=== PATIENT | female | born 1965 ===

== ENCOUNTER 2025-01-09 14:50 | Outpatient (AMB) | payer OTHER, SELFPAY ==
--- NOTE | 2025-01-09 15:13 | A.OFFVIS_ITS ---
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 The patient reports first noticing a feeling of being off kilter and off balance over a year ago, particularly with [id number] movements while cooking or when turning in the shower. The patient finds it necessary to hold on for support in the shower but has never fallen. The patient clarifies the sensation as unsteadiness rather than dizziness. The patient was evaluated by a primary care provider in September, who noted poor balance and provided a referral to neurology. The patient reports consuming approximately 5-6 alcoholic drinks per week. The patient has a history of a rash on the arms and hands for the past two years and also reports occasional itching on the bottom of the feet. The patient denies having diabetes, but there is a family history of diabetes. There is a significant family history of peripheral neuropathy, affecting the patient's father and brother. The patient's father was diabetic and had severe neuropathy. [facility] Medical History (Updated 01/09/25 @ 15:23 by Alexx Clancy MD) Peripheral neuropathy Review of Systems Narrative Constitutional:?No fever, chills, fatigue, weight loss, or night sweats. HEENT:?No headache, vision changes, hearing loss, nasal congestion, sore throat. Cardiovascular:? Complain of chest pain Respiratory:? Complain of shortness of breath Gastrointestinal:? Complain of abdominal pain diarrhea nausea Genitourinary:?No dysuria, frequency, incontinence, or hematuria. Musculoskeletal:? Complain of joint. Neurological:? Complain of unsteadiness Psychiatric:?No anxiety, depression, mood swings, sleep disturbance, or hallucinations. Endocrine:? Complain of heat intolerance Hematologic/Lymphatic:?No easy bruising, bleeding, or lymphadenopathy. Integumentary (Skin):? Complain of rash redness and itching Allergic/Immunologic:?No seasonal allergies, hives, or recurrent infections. Physical Exam Neuro Other: Mental Status: Alert and oriented to person, place, and time. Normal attention. Normal spontaneous speech, fluency, and comprehension. No obvious issues with mood and memory. Affect is appropriate. Cranial Nerves: CN II: Visual castellano full to confrontation, visual acuity intact. CN III, IV, : Pupils equal, round, reactive to light and accommodation. Extraocular movements are normal. CN V: Facial sensation is normal. CN VII: Facial movements symmetrical. CN VIII: Hearing intact to bedside conversation is normal. CN IX, X: Palate elevates symmetrically. CN XI: Shoulder shrug and head turn symmetrical. CN XII: Tongue midline without atrophy or fasciculations. Motor: Bulk and tone normal in all extremities. No significant muscle weakness in arms and legs. No drift. Reflexes: Deep tendon reflexes are trace to absent in knees, only elicitable with reinforcement, and absent in ankles with flexor plantars Coordination: Ktjepu-rx-qorf and pbtb-th-gxlr testing normal. No dysmetria. Gait and Station: No obvious gait abnormality. No ataxia or instability. Sensory: Decreased vibratory and absent joint position sensation in toes. Romberg is negative. Extrapyramidal: Full facial expressions and blinking. No rigidity. Movements are appropriate with no tremor or abnormality. Speech: Normal; no dysarthria or tremor. Assessment & Plan Assessment & Plan (1) Peripheral neuropathy: Code(s): G62.9 - Polyneuropathy, unspecified Category: Medical Qualifiers: Peripheral neuropathy type: polyneuropathy, unspecified Qualified Code(s): G62.9 - Polyneuropathy, unspecified Plan Impression recommendations: 59 years old woman with family history of diabetes and neuropathy was here with complaints of mild unsteadiness. Her examination is revealed signs of chronic neuropathy. He was educated about this concept and was advised to avoid typical triggers such as alcohol. EMG nerve conduction study was requested for classification grading and some blood test for etiology. I would see her back after testing. Orders: Orders NE nerve conduction velocity Today G62.9 - Polyneuropathy, unspecified NE electromyogram (EMG) Today G62.9 - Polyneuropathy, unspecified Basic Metabolic Panel Fasting Today G62.9 - Polyneuropathy, unspecified Lyme IgG/IgM w/reflex to WB Today G62.9 - Polyneuropathy, unspecified Vitamin B12 and Folate Today G62.9 - Polyneuropathy, unspecified Immunofixation Pnl, Serum Today G62.9 - Polyneuropathy, unspecified Coding Level of Care Code New Pt Level 3 (69454) Diagnoses Peripheral polyneuropathy G62.9 Peripheral neuropathy type: polyneuropathy, unspecified
--- OUTSIDE RECORDS SUMMARY | 2025-01-09 17:31 | XMS_ITS | Clinical Summary ---
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
--- OUTSIDE RECORDS SUMMARY | 2025-01-09 17:32 | XMS_ITS ---
Author Name [facility] Organization Unknown Care Team Organization Name Specialty Phone Email Start Date End Inocente [email or web address] [facility], [facility] 04/14/2023 10/04/2024 [facility] Tristin Mariano DO Primary Care 02/22/202209/14 [facility] Termed, PROVIDER Primary Care 12/22/202109/14
== END 2025-01-09 15:49 | disposition home or self-care (01) ==
PROVIDERS: PCP Internal Medicine; Visit Provider Psychiatry & Neurology Neurology
DX: G62.9 Polyneuropathy, unspecified (principal)
CPT/HCPCS: 99203